=== PATIENT | male | born 1945 | race Hispanic/Latino ===

== ENCOUNTER → 2018-11-13 | Outpatient (CLI) | payer MEDICARE ==
[~2018-11-13] MED LIST: ASPI-555 PO; ATOR-2 PO; CARV6.25 PO; CEFD300C3 PO; GLIP10TA9 PO; ISOS60TA4 PO; LOSA25TA41 PO; METF-446 PO; RANO500T3 PO; SITA100T12 PO
== END | disposition home or self-care (01) ==
LOC: SHCH 10:20
PROVIDERS: ATTEND Internal Medicine Cardiovascular Disease
DX: I73.9 Peripheral vascular disease, unspecified (principal)
CPT/HCPCS: 93925